=== PATIENT | male | born 1980 | race Two or more races ===

== ENCOUNTER 2020-02-19 12:38 | Inpatient (IN) ==
[2020-02-19 13:08] VITALS: BMI 26.7
--- NOTE | 2020-02-19 13:20 | DR.URIAD ---
HPI - Time Seen Time seen: 13:20 - PCP Primary Care Physician: ANAT - HPI Comment HPI Comment: Patient with fever, cough and chest pain. Tested last week for COVID19 results unknown. No vomiting. - Complaint Chief Complaint:: PT SWABBED FOR COVID ON WEDNESDAY, PT C/O FEVER , CHEST PAINS , AND DRY COUGHT , LUNGS ARE CLEAR NO DISTRESS NOTED ,BR - Reviewed Nurses Notes Reviewed: Yes - Source History Provided: Patient - Mode of Arrival Mode of Arrival: Ambulatory - Timing Onset of Chief Complaint: 02/12/20 - Context Recent Treated Infections: None History of Respiratory: None - Quality Quality of Cough: Nonproductive Rhinorrhea: Clear Shortness of Breath: none - Associated Signs and Symptoms Other Signs and Symptoms: URI PMH - PMH Past Medical History: No Past Surgical History: No - Family History History of Family Medical Conditions: No - Social History Does patient currently use any type of tobacco product: No Have you used tobacco products in the last 12 months: No Type of Tobacco Use: None Does any household member use tobacco: No Alcohol Use: Rarely Do you use any recreational Drugs:: No Lives With: Spouse Lives Where: Home - Travel Risk Coronavirus risk:travel/contact w/high risk person: No Has patient experienced Coronavirus symptoms: Yes Coronavirus symptoms experienced: Fever, Coughing - infectious screening In the last 2 months have you had wt loss of >10#?: NO Have you had fever, night sweats or hemotysis?: No Have you traveled outside the country in the last 6 months?: No Isolation: Airborn/Negative Pressure ROS - Review of Systems Constitutional: Fever Eyes: No Symptoms Reported ENTM: No Symptoms Reported Respiratoy: Dry Cough Cardiovascular: Chest Pain Gastrointestinal/Abdominal: No Symptoms Reported Genitourinary: No Symptoms Reported Neurological: No Symptoms Reported Musculoskeletal: No Symptoms Reported Integumentary: No Symptoms Reported Hematologic/Lymphatic: No Symptoms Reported Endocrine: No Symptoms Reported Psychiatric: No Symptoms Reported All Other Systems: Reviewed and Negative PE - General Limitations: No Limitations General Appearance: Alert, In No Apparent Distress - Head Head Exam: Normal Inspection - Eyes Eye exam: Normal Appearance, EOMI - ENT ENT Exam: Normal Exam External Ear Exam: Normal External Inspection Nose Exam: Normal Nose Exam Mouth Exam: Normal Inspection Throat Exam: Normal Inspection - Neck Neck Exam: Normal Inspection, Full ROM, Trachea Midline - Chest Chest Inspection: Normal Inspection - Respiratory Respiratory Exam: Normal Lung Sounds Bilat Respiratory Exam: Bilateral Clear to Auscultation - Cardiovascular Cardiovascular Exam: Regular Rate - Abdominal Exam Abdominal Exam: Normal Inspection, Normal Bowel Sounds, Soft - Extremeties Extremities Exam: Normal Inspection, Full ROM - Back Back Exam: Normal Inspection - Neurologic Neurological Exam: Alert, Oriented X3, CN II-XII Intact - Psychiatric Psychiatric Exam: Normal Mood - Skin Skin Exam: Intact, Normal Color - Vital Signs Vitals: Temperature 99.0 F Pulse Rate 99 Respiratory Rate 20 Blood Pressure 120/68 O2 Sat by Pulse Oximetry 87 Course - Treatment Treatment: 1518: case discussed with DR. VARELA admit viral pneumonia protocol - Reevaluation 1st: Unchanged 2nd: Unchanged - Consultation Called: 15:18 Call Returned: 15:18 Consultation Comments: start viral pneumonia protocol admit per DR. VARELA ROR - Labs Reviewed Result Diagrams: 02/19/20 13:50 02/19/20 13:50 - XRAY XRAY Interpreted by: Radiologist - Labs Reviewed Laboratory: WBC 7.1 X10^3/uL (3.6-10.0) 02/19/20 13:50 RBC 4.58 X10^6/uL (4.7-6.0) L 02/19/20 13:50 Hgb 13.9 g/dL (13.5-18.0) 02/19/20 13:50 Hct 39.0 % (42.0-54.0) L 02/19/20 13:50 MCV 85.2 fL (80.0-100.0) 02/19/20 13:50 MCH 30.3 pg (27.0-34.0) 02/19/20 13:50 MCHC 35.6 g/dL (33.0-35.0) H 02/19/20 13:50 RDW 12.0 % (11.6-16.5) 02/19/20 13:50 Plt Count 215 X10^3/uL (150.0-450.0) 02/19/20 13:50 MPV 7.6 fL (7.4-11.0) 02/19/20 13:50 Neut % (Auto) 72.5 % (42.0-75.0) 02/19/20 13:50 Lymph % (Auto) 13.2 % (21.0-51.0) L 02/19/20 13:50 [place] % (Auto) 14.0 % (0.0-13.0) H 02/19/20 13:50 Eos % (Auto) 0.2 % (0.9-2.9) L 02/19/20 13:50 Baso % (Auto) 0.1 % (0.2-1.0) L 02/19/20 13:50 Neut # (Auto) 5.1 x10^3/uL (2.2-4.8) H 02/19/20 13:50 Lymph # (Auto) 0.9 X10^3/uL (1.3-2.9) L 02/19/20 13:50 [place] # (Auto) 1.0 x10^3/uL (0.3-0.8) H 02/19/20 13:50 Eos # (Auto) 0.0 x10^3/uL (0.0-0.2) 02/19/20 13:50 Baso # (Auto) 0.0 X10^3/uL (0.0-0.1) 02/19/20 13:50 Absolute Nucleated RBC 0.0 /100WBC 02/19/20 13:50 Sodium 136 mmol/L (136-145) 02/19/20 13:50 Corrected Sodium TNP 02/19/20 13:50 Potassium 3.7 mmol/L (3.5-5.1) 02/19/20 13:50 Chloride 99 mmol/L (98-107) 02/19/20 13:50 Carbon Dioxide 29.4 mmol/L (21-32) 02/19/20 13:50 BUN 8 mg/dL (7-18) 02/19/20 13:50 Creatinine 0.90 mg/dL (0.70-1.30) 02/19/20 13:50 Est GFR (MDRD) Af Amer > 60 (>60) 02/19/20 13:50 Est GFR (MDRD) Non-Af > 60 (>60) 02/19/20 13:50 Glucose 106 mg/dL (65-99) H 02/19/20 13:50 Calcium 8.4 mg/dL (8.5-10.1) L 02/19/20 13:50 - XRAY Xray Findings: chest:IMPRESSION Patchy bilateral airspace disease may reflect atypical or viral pneumonia. (JOSE M LOCKWOOD) Opioid - Opioid Risk Tool Age (Jose M box if 16-45): Yes History of Preadolescent Sexual Abuse: No Total: 1 Total Score Risk Category: Low Risk - Diagnosis Discharge Problem: Viral pneumonia - Discharge Plan Disposition: 09 ADMITTED INPATIENT Condition: Stable
[2020-02-19] MEDS ORDERED: XOPENEX 1.25 MG/3 ML NEBULE NEB ONE ×2 (13:21→13:48)
--- NOTE | 2020-02-19 14:06 | RAD ---
HISTORYlow grade fever, dry cough, tested for covid19 wednesday( awaiting results)STUDYCHEST, 1 VIEWCOMPARISONNoneFINDINGSCardiomediastinal silhouette within normal limits. Lungs are underinflated. There are left greater than right patchy midlung opacities. No sizable effusion or visible pneumotho rax. No acute osseous finding.IMPRESSIONPatchy bilateral airspace disease may reflect atypical or vir al pneumonia.Electronically signed by: Leonel Polanco (February 19, 2020 14:05:03)
[2020-02-19 14:19] LABS: BASOPHILS % (AUTO) 0.1 % (0.2-1.0); EOSINOPHILS % (AUTO) 0.2 % (0.9-2.9); HEMOGLOBIN 13.9 g/dL (13.5-18.0); LYMPHOCYTES # (AUTO) 0.9 X10^3/uL (1.3-2.9); LYMPHOCYTES % (AUTO) 13.2 % (21.0-51.0); MEAN CORPUSCULAR HEMOGLOBIN 30.3 pg (27.0-34.0); MEAN CORPUSCULAR HGB CONC 35.6 g/dL (33.0-35.0); MEAN CORPUSCULAR VOLUME 85.2 fL (80.0-100.0); MEAN PLATELET VOLUME 7.6 fL (7.4-11.0); NEUTROPHILS # (AUTO) 5.1 x10^3/uL (2.2-4.8); NEUTROPHILS % (AUTO) 72.5 % (42.0-75.0); PLATELET COUNT 215 X10^3/uL (150.0-450.0); RED BLOOD COUNT 4.58 X10^6/uL (4.7-6.0); WHITE BLOOD COUNT 7.1 X10^3/uL (3.6-10.0)
[2020-02-19 14:24] LABS: BLOOD UREA NITROGEN 8 mg/dL (7-18); CALCIUM 8.4 mg/dL (8.5-10.1); CARBON DIOXIDE 29.4 mmol/L (21-32); CHLORIDE 99 mmol/L (98-107); SODIUM 136 mmol/L (136-145); eGFR NON BLACK RACES > 60 (>60)
[2020-02-19] MEDS ORDERED: NS 1000 ML 1,000 ML ONE (15:09)
[2020-02-19] MEDS ORDERED: ZITHROMAX INJ 500 MG VIAL IV ONE (15:10)
[2020-02-19] MEDS ORDERED: NS 250 ML IV 250 ML IV ONE (15:10)
[2020-02-19] MEDS: ZITHROMAX INJ 500 MG VIAL 500 MG in D5W 250 ML IV 250 ML IV SCH (15:43)
[2020-02-19] MEDS ORDERED: NS 1000 ML 1,000 ML IV SCH (16:00)
[2020-02-19] MEDS ORDERED: ASCORBIC ACID INJ MULTI-DOSE VIAL IM SCH (16:15)
[2020-02-19 16:49] LABS: ABG BASE EXCESS 5.2 mmol/L (-2.0-2.0)
[2020-02-19 16:50] LABS: ABG ALLEN TEST POS
[2020-02-19] MEDS: CORTEF PO SCH ×2 (17:13→21:10)
[2020-02-19] MEDS: THIAMINE HCL INJ IM SCH ×2 (17:14→20:37)
[2020-02-19] MEDS: ZINC SULFATE PO SCH ×2 (17:14→21:10)
[2020-02-19] MEDS: NS 1000 ML 1,000 ML IV SCH (17:15)
[2020-02-19] MEDS ORDERED: PREVNAR 13 IM ONE (18:17)
[2020-02-19] MEDS ORDERED: CORTEF ONE (20:49)
[2020-02-19] MEDS: ASPIRIN PO SCH (21:09)
[2020-02-19] MEDS: LOVENOX INJ 30 MG SYR SC SCH (21:10)
[2020-02-19] MEDS: NS 100 ML IV 100 ML with ASCORBIC ACID INJ MULTI-DOSE VIAL 1,500 MG IV SCH ×2 (21:10)
[2020-02-19] MEDS: PLAQUENIL PO SCH (21:11)
[2020-02-20] MEDS: ASPIRIN PO SCH ×4 (02:56→20:20)
[2020-02-20] MEDS: NS 100 ML IV 100 ML with ASCORBIC ACID INJ MULTI-DOSE VIAL 1,500 MG IV SCH ×8 (02:56→20:21)
[2020-02-20 05:18] LABS: BASOPHILS % (AUTO) 0.3 % (0.2-1.0); EOSINOPHILS % (AUTO) 0.1 % (0.9-2.9); HEMATOCRIT 37.5 % (42.0-54.0); HEMOGLOBIN 13.2 g/dL (13.5-18.0); LYMPHOCYTES # (AUTO) 0.9 X10^3/uL (1.3-2.9); LYMPHOCYTES % (AUTO) 14.3 % (21.0-51.0); MEAN CORPUSCULAR HEMOGLOBIN 30.4 pg (27.0-34.0); MEAN CORPUSCULAR HGB CONC 35.1 g/dL (33.0-35.0); MEAN CORPUSCULAR VOLUME 86.7 fL (80.0-100.0); MEAN PLATELET VOLUME 7.6 fL (7.4-11.0); MONOCYTES # (AUTO) 0.8 x10^3/uL (0.3-0.8); MONOCYTES % (AUTO) 12.3 % (0.0-13.0); NEUTROPHILS # (AUTO) 4.5 x10^3/uL (2.2-4.8); PLATELET COUNT 228 X10^3/uL (150.0-450.0); RED BLOOD COUNT 4.33 X10^6/uL (4.7-6.0); RED CELL DISTRIBUTION WIDTH 12.6 % (11.6-16.5); WHITE BLOOD COUNT 6.1 X10^3/uL (3.6-10.0)
[2020-02-20 05:26] LABS: ALANINE AMINOTRANSFERASE 103 Units/L (12-78); ALBUMIN 2.6 g/dL (3.4-5.0); ALKALINE PHOSPHATASE 118 Units/L (46-116); ASPARTATE AMINO TRANSFERASE 67 Units/L (15-37); BLOOD UREA NITROGEN 12 mg/dL (7-18); CALCIUM 8.3 mg/dL (8.5-10.1); CARBON DIOXIDE 28.6 mmol/L (21-32); CHLORIDE 103 mmol/L (98-107); COR CA(FOR HYPOALB) 9.4 mg/dL (8.5-10.1); COR NA(FOR HYPERGLY) 139 mmol/L (136-145); CREATININE 0.85 mg/dL (0.70-1.30); SODIUM 139 mmol/L (136-145); TOTAL PROTEIN 7.1 g/dL (6.4-8.2); eGFR NON BLACK RACES > 60 (>60)
[2020-02-20] MEDS: PLAQUENIL PO SCH ×3 (06:22→22:00)
[2020-02-20] MEDS ORDERED: CORTEF ONE (08:09)
[2020-02-20] MEDS ORDERED: VITAMIN A PO SCH (09:00)
[2020-02-20] MEDS ORDERED: VITAMIN D (1.25MG) PO SCH (09:00)
[2020-02-20] MEDS: CORTEF PO SCH ×4 (09:08→20:20)
[2020-02-20] MEDS: LOVENOX INJ 30 MG SYR SC SCH ×2 (09:08→20:20)
[2020-02-20] MEDS: THIAMINE HCL INJ IM SCH ×2 (09:09→20:21)
[2020-02-20] MEDS: ZITHROMAX INJ 500 MG VIAL 500 MG in D5W 250 ML IV 250 ML IV SCH (09:10)
[2020-02-20] MEDS: ZINC SULFATE PO SCH ×2 (09:10→20:22)
[2020-02-20] MEDS: NS 1000 ML 1,000 ML IV SCH (17:59)
[2020-02-21] MEDS: NS 100 ML IV 100 ML with ASCORBIC ACID INJ MULTI-DOSE VIAL 1,500 MG IV SCH ×8 (03:12→20:28)
[2020-02-21] MEDS: ASPIRIN PO SCH ×4 (03:13→20:27)
[2020-02-21 05:11] LABS: BASOPHILS % (AUTO) 0.3 % (0.2-1.0); EOSINOPHILS % (AUTO) 0.7 % (0.9-2.9); HEMATOCRIT 38.4 % (42.0-54.0); HEMOGLOBIN 13.4 g/dL (13.5-18.0); LYMPHOCYTES % (AUTO) 14.8 % (21.0-51.0); MEAN CORPUSCULAR HEMOGLOBIN 30.4 pg (27.0-34.0); MEAN CORPUSCULAR HGB CONC 34.9 g/dL (33.0-35.0); MEAN CORPUSCULAR VOLUME 87.3 fL (80.0-100.0); MONOCYTES # (AUTO) 0.7 x10^3/uL (0.3-0.8); MONOCYTES % (AUTO) 10.7 % (0.0-13.0); NEUTROPHILS # (AUTO) 5.1 x10^3/uL (2.2-4.8); NEUTROPHILS % (AUTO) 73.5 % (42.0-75.0); PLATELET COUNT 271 X10^3/uL (150.0-450.0); RED CELL DISTRIBUTION WIDTH 12.4 % (11.6-16.5)
[2020-02-21 05:25] LABS: ALANINE AMINOTRANSFERASE 121 Units/L (12-78); ALBUMIN 2.4 g/dL (3.4-5.0); ALKALINE PHOSPHATASE 138 Units/L (46-116); ASPARTATE AMINO TRANSFERASE 84 Units/L (15-37); BLOOD UREA NITROGEN 16 mg/dL (7-18); CALCIUM 8.2 mg/dL (8.5-10.1); CARBON DIOXIDE 26.7 mmol/L (21-32); CHLORIDE 106 mmol/L (98-107); COR CA(FOR HYPOALB) 9.5 mg/dL (8.5-10.1); COR NA(FOR HYPERGLY) 142 mmol/L (136-145); CREATININE 0.84 mg/dL (0.70-1.30); SODIUM 142 mmol/L (136-145); TOTAL PROTEIN 6.8 g/dL (6.4-8.2); eGFR NON BLACK RACES > 60 (>60)
[2020-02-21] MEDS: PLAQUENIL PO SCH ×3 (06:14→21:22)
[2020-02-21] MEDS: CORTEF PO SCH ×4 (08:32→20:27)
[2020-02-21] MEDS: LOVENOX INJ 30 MG SYR SC SCH ×2 (08:32→20:26)
[2020-02-21] MEDS: ZINC SULFATE PO SCH ×2 (08:33→20:28)
[2020-02-21] MEDS: VITAMIN A PO SCH (08:33)
[2020-02-21] MEDS: VITAMIN D3 125 mcg (5,000 UNITS) PO SCH (08:33)
[2020-02-21] MEDS ORDERED: NS 25 ML IV 25 ML ONE (08:47)
[2020-02-21] MEDS: THIAMINE HCL IV SCH ×4 (09:30→20:28)
[2020-02-21] MEDS: NS IV SCH ×4 (09:30→20:28)
[2020-02-21] MEDS: ZITHROMAX INJ 500 MG VIAL 500 MG in D5W 250 ML IV 250 ML IV SCH (09:43)
[2020-02-21] MEDS ORDERED: NS 100 ML IV 100 ML IV ONE ×3 (16:15→20:16)
[2020-02-21] MEDS: NS 1000 ML 1,000 ML IV SCH (16:21)
[2020-02-22] MEDS: ASPIRIN PO SCH ×2 (02:00→08:50)
[2020-02-22] MEDS: NS 100 ML IV 100 ML with ASCORBIC ACID INJ MULTI-DOSE VIAL 1,500 MG IV SCH ×4 (03:00→08:50)
[2020-02-22 05:11] LABS: BASOPHILS % (AUTO) 0.3 % (0.2-1.0); EOSINOPHILS # (AUTO) 0.1 x10^3/uL (0.0-0.2); HEMATOCRIT 36.6 % (42.0-54.0); LYMPHOCYTES # (AUTO) 1.2 X10^3/uL (1.3-2.9); LYMPHOCYTES % (AUTO) 19.7 % (21.0-51.0); MEAN CORPUSCULAR HEMOGLOBIN 30.4 pg (27.0-34.0); MEAN CORPUSCULAR HGB CONC 35.6 g/dL (33.0-35.0); MEAN CORPUSCULAR VOLUME 85.5 fL (80.0-100.0); MEAN PLATELET VOLUME 7.3 fL (7.4-11.0); MONOCYTES # (AUTO) 0.7 x10^3/uL (0.3-0.8); MONOCYTES % (AUTO) 11.4 % (0.0-13.0); NEUTROPHILS # (AUTO) 4.1 x10^3/uL (2.2-4.8); NEUTROPHILS % (AUTO) 67.6 % (42.0-75.0); PLATELET COUNT 325 X10^3/uL (150.0-450.0); RED BLOOD COUNT 4.29 X10^6/uL (4.7-6.0); RED CELL DISTRIBUTION WIDTH 12.4 % (11.6-16.5)
[2020-02-22] MEDS: PLAQUENIL PO SCH (05:15)
[2020-02-22 05:25] LABS: ALANINE AMINOTRANSFERASE 98 Units/L (12-78); ALBUMIN 2.3 g/dL (3.4-5.0); ALKALINE PHOSPHATASE 125 Units/L (46-116); ASPARTATE AMINO TRANSFERASE 50 Units/L (15-37); BLOOD UREA NITROGEN 12 mg/dL (7-18); CALCIUM 8.1 mg/dL (8.5-10.1); CARBON DIOXIDE 28.6 mmol/L (21-32); CHLORIDE 105 mmol/L (98-107); COR CA(FOR HYPOALB) 9.5 mg/dL (8.5-10.1); CREATININE 0.82 mg/dL (0.70-1.30); SODIUM 141 mmol/L (136-145); TOTAL PROTEIN 6.5 g/dL (6.4-8.2); eGFR NON BLACK RACES > 60 (>60)
[2020-02-22] MEDS ORDERED: NS 100 ML IV 100 ML IV ONE (08:27)
[2020-02-22] MEDS: CORTEF PO SCH (08:50)
[2020-02-22] MEDS: ZINC SULFATE PO SCH (08:50)
[2020-02-22] MEDS: LOVENOX INJ 30 MG SYR SC SCH (08:50)
[2020-02-22] MEDS: VITAMIN D3 125 mcg (5,000 UNITS) PO SCH (08:50)
[2020-02-22] MEDS: VITAMIN A PO SCH (08:50)
[2020-02-22] MEDS ORDERED: NS 25 ML IV 25 ML ONE (09:46)
[2020-02-22] MEDS: THIAMINE HCL IV SCH ×2 (09:55)
[2020-02-22] MEDS: NS IV SCH ×2 (09:55)
[2020-02-22 10:56] VITALS: BP 117/74
== END 2020-02-22 11:11 | disposition home or self-care (01) | DRG 177 ==
LOC: ER 13:02 → ICU 15:45
PROVIDERS: ADMIT Obstetrics & Gynecology Obstetrics; ATTEND Obstetrics & Gynecology Obstetrics
DX: U07.1 COVID-19; R07.89 Other chest pain; J12.89 Other viral pneumonia; R74.0 Nonspecific elevation of levels of transaminase and lactic acid dehydrogenase [LDH]; Z23 Encounter for immunization
CPT/HCPCS: 36415; 36600; 71010; 71045; 80048; 80053; 82803; 83605; 85025; 87040; 90670; 96365; 96367; 96374; 99284; A4222; J0456; J1650; J3411; J7030; J7050; J7060